=== PATIENT | female | born 1940 | race Two or more races ===

== ENCOUNTER 2025-02-25 21:07 | Emergency (ER) | payer OTHER ==
[~2025-02-25] VITALS: Ht 157.5 cm; Wt 64.4 kg
[2025-02-25] MEDS ORDERED: NEURONTIN300 MG PO (21:24)
[2025-02-25] MEDS ORDERED: ZANAFLEX4 MG (21:25)
[2025-02-25] MEDS ORDERED: LIPITOR40 M1 PO (21:25)
[2025-02-25] MEDS ORDERED: IBANDRONATE SO150 MG PO (21:25)
[2025-02-25] MEDS ORDERED: COZAAR25 MG PO (21:25)
[2025-02-25] MEDS ORDERED: ORPHENADRINE CITRATE 30 MG/ML AMPUL IM ONE (21:45)
[2025-02-25 22:10] LABS: BASO % 0.6 % (0.1-1.2); EOS # 0.13 (0.04-0.54); EOS % 1.2 % (0.7-7.0); LYMPH # 5.66 (1.18-3.74); LYMPH % 52.4 % (19.3-53.1); MEAN PLATELET VOLUME 10.20 fl (9.4-12.4); MONO # 0.66 (0.24-0.82); MONO % 6.1 % (4.7-12.5); NEUT # 4.27 (1.56-6.13); NEUT % 39.4 % (34.0-71.1); RED CELL DISTRIBUTION WIDTH 12.7 % (11.6-14.4)
[2025-02-25 22:22] LABS: URINE APPEARANCE Clear; URINE BILIRRUBIN Negative (NEGATIVE); URINE BLOOD Moderate; URINE COLOR Yellow; URINE GLUCOSE Negative (NEGATIVE); URINE KETONE Trace (NEGATIVE); URINE LEUKOCYTE Moderate; URINE NITRATE Positive; URINE PROTEIN Negative (NEGATIVE); URINE UROBILINOGEN 1.0 E.U./dl
[2025-02-25 22:26] LABS: URINE BACTERIA 7952.4 uL (0.0-1933); URINE EPITHELIAL CELLS 12.9 uL (0.0-38.8); URINE RBC 6.0 uL (0.0-20.8); URINE WBC 238.6 uL (0.0-23.2)
[2025-02-25 22:28] LABS: INR 1.0
[2025-02-25 22:30] LABS: ALT/SGPT 21.0 U/L (12-78); AST/SGOT 23.0 U/L (15-37); BILIRUBIN TOTAL 0.86 mg/dL (0.3-1.2); BUN CREA RATIO 26.0 (7.0-25.0); CREATININE SERUM 1.22 mg/dL (0.55-1.02); GFR 41.89; GLOBULINA 3.3 G/DL (2.4-3.5); GLUCOSE FASTING 100.0 mg/dL (65-100); OSMOLALITY SERUM 288.0 MOSM/KG (275-295)
[2025-02-25 22:41] LABS: URINE CAST 0.58 uL (0.0-1.40)
[2025-02-25] MEDS ORDERED: levoFLOXacin IN DEXTROSE 5 % 5 MG/ML PIGGYBAG IV ONE (23:00)
[2025-02-26] MEDS ORDERED: CIPRO500 MG PO (03:04)
== END 2025-02-26 03:17 | disposition home or self-care (01) ==
LOC: ER 21:27
PROVIDERS: General Practice
DX: N39.0 Urinary tract infection, site not specified (principal); R10.9 Unspecified abdominal pain; Z88.0 Allergy status to penicillin; Z88.6 Allergy status to analgesic agent; Z91.041 Radiographic dye allergy status; I48.91 Unspecified atrial fibrillation; J45.909 Unspecified asthma, uncomplicated; Z86.73 Personal history of transient ischemic attack (TIA), and cerebral infarction without residual deficits; K57.30 Diverticulosis of large intestine without perforation or abscess without bleeding
CPT/HCPCS: 36415; 74176; 96365; 96372; 99284; J1956; J2360